=== PATIENT | female | born 1975 | race Caucasian/White ===

== ENCOUNTER 2022-05-16 17:26 | Emergency (ER) | payer OTHER ==
[2022-05-16 18:00] VITALS: TEMP 98.2; BMI 25.0
[2022-05-16] MEDS ORDERED: ACETAMINOPHEN 1000 MG/100 ML BAG IVPB ONE (18:18)
[2022-05-16] MEDS ORDERED: SODIUM CHLORIDE 0.9% 500 ML INFUS.BAG IV ONE (18:18)
[2022-05-16] MEDS ORDERED: ACETAMINOPHEN INJECTION 100 ML IVPB ONE (18:38)
[2022-05-16 18:48] LABS: EPI CELLS 7 /uL (0-25.1); HYALINE CASTS 0 /uL (0-3.1); PH,URINE 8.5 (5.0-8.0); URINE APPEARANCE CLEAR; URINE BACTERIA 186 /uL (0-1359); URINE BILIRUBIN NEGATIVE (NEGATIVE); URINE COLOR YELLOW; URINE GLUCOSE (UA) NEGATIVE (NEGATIVE); URINE KETONE 2+ (NEGATIVE); URINE LEUK ESTERASE NEGATIVE (NEGATIVE); URINE NITRITE NEGATIVE (NEGATIVE); URINE PROTEIN 1+ (NEGATIVE); URINE RBC 40 /uL (0-23.9); URINE WBC 2 /uL (0-25.8)
[2022-05-16 18:53] LABS: BASO % 0.4 % (0-2.0); EOS % 0.5 % (0-4.5); HEMATOCRIT 40.1 % (32.4-45.2); HEMOGLOBIN 13.9 GM/dL (10.7-15.3); LYMPH % 12.7 % (8-40); MCH 30.4 pg (25.7-33.7); MCHC 34.8 g/dl (32.0-36.0); MEAN CELL VOLUME 87.5 fl (80-96); MONO % 4.7 % (3.8-10.2); NEUT % 81.7 % (42.8-82.8); PLATELET COUNT 285 10^3/uL (134-434); RBC 4.58 M/mm3 (3.60-5.2); RDW 12.5 % (11.6-15.6); WHITE BLOOD COUNT 8.5 K/mm3 (4.0-10.0)
[2022-05-16 19:10] LABS: ALBUMIN 4.3 g/dl (3.4-5.0); BLOOD UREA NITROGEN 11.7 mg/dL (7-18); CALCIUM 9.7 mg/dL (8.5-10.1); MAGNESIUM 1.7 mg/dL (1.8-2.4)
[2022-05-16 19:13] LABS: CREATININE 0.7 mg/dL (0.55-1.3)
[2022-05-16 19:14] LABS: BILIRUBIN,TOTAL 1.5 mg/dL (0.2-1); TOT PROT 7.9 g/dl (6.4-8.2)
[2022-05-16 19:48] VITALS: BP 142/86; PULSE 76; RESP 16
[2022-05-16] MEDS ORDERED: FOLIC ACID 1 MG TABLET (FP) PO ONE (19:58)
[2022-05-16] MEDS ORDERED: THIAMINE HCL 200 MG/2 ML VIAL IVPB ONE (19:58)
[2022-05-16] MEDS ORDERED: MAGNESIUM 1GM/D5W - 1 GM/100 ML IVPB IVPB ONE (21:00)
[2022-05-16] MEDS ORDERED: THIAMINE HCL 200 MG/2 ML VIAL ONE (21:00)
[2022-05-16] MEDS ORDERED: FOLIC ACID 1 MG TABLET (FP) ONE (21:00)
[2022-05-16 22:09] LABS: BILIRUBIN,DIRECT 0.3 mg/dL (0.0-0.2)
== END 2022-05-16 23:41 | disposition home or self-care (01) ==
LOC: JER 17:26
PROC: 3E033GC Introduction of Other Therapeutic Substance into Peripheral Vein, Percutaneous Approach (ICD-10-PCS; principal; 2022-05-16)
PROC: 3E033NZ Introduction of Analgesics, Hypnotics, Sedatives into Peripheral Vein, Percutaneous Approach (ICD-10-PCS; 2022-05-16)
PROC: 3E033GC Introduction of Other Therapeutic Substance into Peripheral Vein, Percutaneous Approach (ICD-10-PCS; 2022-05-16)
DX: K29.70 Gastritis, unspecified, without bleeding (principal); R10.30 Lower abdominal pain, unspecified; R11.2 Nausea with vomiting, unspecified; Z20.822 Contact with and (suspected) exposure to COVID-19
CPT/HCPCS: 0241U-QW; 36415; 74177-TC; 80053; 81003; 82248; 83690; 83735; 84703; 85025; 87086; 93005; 93010; 99285-25; Q9967

== ENCOUNTER 2022-10-21 08:00 | Day surgery (SDC) | payer OTHER ==
[2022-10-18 14:32] VITALS: BMI 24.8
[2022-10-21 09:08] VITALS: TEMP 97.3
[2022-10-21 09:51] VITALS: RESP 18
[2022-10-21 09:58] VITALS: BP 110/89; PULSE 66
== END 2022-10-21 09:40 | disposition home or self-care (01) ==
LOC: JASU-ENDO 08:00
PROVIDERS: ATTEND Student in an Organized Health Care Education/Training Program
PROC: 0DJD8ZZ Inspection of Lower Intestinal Tract, Via Natural or Artificial Opening Endoscopic (ICD-10-PCS; principal; 2022-10-21 09:00)
DX: Z12.11 Encounter for screening for malignant neoplasm of colon (principal); K64.8 Other hemorrhoids
CPT/HCPCS: 81025